=== PATIENT | female | born 1950 | race Caucasian/White ===

== ENCOUNTER 2018-09-06 21:01 | Inpatient (IN) | payer MEDICARE, MEDICAID ==
[2018-09-06] MEDS: DEXTROSE 10% 1,000 ML IV (21:50)
[2018-09-06] MEDS ORDERED: IPRATROPIUM (HFA) 12.9 GM INHALER INH (22:30)
[2018-09-06 22:53] LABS: HAAIG REFLEX REFLEX FILED
[2018-09-06 22:56] LABS: ABNORMAL IP MESSAGE 1; HEMATOCRIT 27.6 % (37.0-47.0); HEMOGLOBIN 8.6 g/dl (12.0-16.0); MEAN CORPUSCULAR HEMOGLOBIN 29.6 pg (29.0-33.0); MEAN CORPUSCULAR HGB CONC 31.2 g/dl (32.0-37.0); MEAN CORPUSCULAR VOLUME 94.8 fl (82.0-101.0); MEAN PLATELET VOLUME 8.8 fl (7.4-10.4); PLATELET COUNT 963 10^3/UL (140-415); RED BLOOD COUNT 2.91 10^6/ul (4.20-5.40); RED CELL DISTRIBUTION WIDTH 19.4 % (11.5-14.5)
[2018-09-06 22:59] LABS: ADD MAN DIFF? YES; POSITIVE DIFF @See below
[2018-09-06 23:00] LABS: PATH REVIEW? YES
[2018-09-06 23:18] LABS: ALANINE AMINOTRANSFERASE 124 IU/L (13-69); ALBUMIN 2.5 g/dl (3.3-4.9); ALKALINE PHOSPHATASE 430 IU/L (42-121); ANION GAP 10 (5-13); ASPARTATE AMINO TRANSFERASE 65 IU/L (15-46); BILIRUBIN,INDIRECT 0.2 mg/dl (0-1.1); BILIRUBIN,TOTAL 0.2 mg/dl (0.2-1.3); BLOOD UREA NITROGEN 15 mg/dl (7-20); CALCIUM 9.8 mg/dl (8.4-10.2); CARBON DIOXIDE 24 mmol/L (21-31); CHLORIDE 100 mmol/L (97-110); CREATININE 0.42 mg/dl (0.44-1.00); Estimated GFR > 60 mL/min (>60); GLUCOSE 88 mg/dl (70-220); POTASSIUM 3.9 mmol/L (3.5-5.1); SODIUM 134 mmol/L (135-144); TOTAL PROTEIN 5.6 g/dl (6.1-8.1)
[2018-09-06 23:22] LABS: LACTIC ACID 2.9 mmol/L (0.5-2.0)
[2018-09-06 23:24] LABS: LYMPHOCYTES #M 1.9 10^3/ul (0.8-2.9); LYMPHOCYTES % (M) 5 % (15-51); MONOCYTE #M 1.1 10^3/ul (0.3-0.9); MONOCYTES % (M) 3 % (0-11); PLATELET ESTIMATE INCREASED; POLYCHROMASIA 1+ (0-0); SEGMENTED NEUTROPHILS (M) % 92 % (39-77); SMUDGE%M 4 % (0-0)
[2018-09-06] MEDS ORDERED: VANCOMYCIN IV PER PHARMACY XX (23:30)
[2018-09-06 23:48] LABS: HEPATITIS B SURFACE ANTIGEN NEGATIVE (NEGATIVE)
[2018-09-07 00:01] LABS: ADD UMIC YES; UR AMORPHOUS CRYSTAL MODERATE /HPF (NONE SEEN); UR ASCORBIC ACID NEGATIVE (NEGATIVE); UR BACTERIA FEW /HPF (NONE SEEN); UR BILIRUBIN (Dip) NEGATIVE (NEGATIVE); UR BLOOD (Dip) NEGATIVE (NEGATIVE); UR CALCIUM OXALATE CRYSTAL FEW /HPF (NONE SEEN); UR CLARITY CLOUDY (CLEAR); UR COLOR YELLOW (YELLOW); UR GLUCOSE (Dip) NEGATIVE (NEGATIVE); UR KETONES (Dip) NEGATIVE (NEGATIVE); UR LEUKOCYTE ESTERASE (Dip) NEGATIVE Leu/ul (NEGATIVE); UR NITRITE (Dip) NEGATIVE (NEGATIVE); UR RBC 2 /HPF (0-5); UR SPECIFIC GRAVITY (Dip) 1.016 (1.003-1.030); UR SQUAMOUS EPITHELIAL CELL FEW /HPF (FEW); UR TOTAL PROTEIN (Dip) 1+ mg/dl (NEGATIVE); UR UROBILINOGEN (Dip) NEGATIVE (NEGATIVE); UR WBC 8 /HPF (0-5)
[2018-09-07 00:08] LABS: HEPATITIS B SURFACE ANTIBODY NEGATIVE (NEGATIVE)
[2018-09-07 00:08] LABS: HEPATITIS B CORE ANTIBODY NEGATIVE (NEGATIVE); HEPATITIS C VIRAL ANTIBODY NEGATIVE (NEGATIVE)
[2018-09-07] MEDS: SOD CHLORIDE 0.9% 1,000 ML IV (00:57)
[2018-09-07] MEDS: ENOXAPARIN 40 MG/0.4 ML SYG SC ×2 (00:59→09:20)
[2018-09-07] MEDS: PIPER-TAZO 3.375 GM IV (PMX) 100 ML IVPB ×4 (01:12→18:01)
[2018-09-07] MEDS: VANCOMYCIN 1 GM 250 ML IVPB (01:35)
[2018-09-07] MEDS: ACETAMINOPHEN 650 MG SUPP PR (01:37)
[2018-09-07] MEDS: PANTOPRAZOLE 40 MG INJ IV (05:31)
[2018-09-07] MEDS ORDERED: GLUCOSE GEL 15 GRAM TUBE PO ×2 (06:00)
[2018-09-07] MEDS ORDERED: GLUCOSE GEL 15 GRAM TUBE BUCCAL (06:00)
[2018-09-07] MEDS ORDERED: DEXTROSE 50% 50 ML SYRINGE IV ×4 (06:00)
[2018-09-07] MEDS ORDERED: GLUCAGON 1 MG INJ IM (06:00)
[2018-09-07 06:44] LABS: WHITE BLOOD COUNT 38.3 10^3/ul (4.8-10.8)
[2018-09-07 06:44] LABS: ABNORMAL IP MESSAGE 1; HEMATOCRIT 26.1 % (37.0-47.0); HEMOGLOBIN 8.1 g/dl (12.0-16.0); MEAN CORPUSCULAR HEMOGLOBIN 30.2 pg (29.0-33.0); MEAN CORPUSCULAR VOLUME 97.4 fl (82.0-101.0); MEAN PLATELET VOLUME 9.1 fl (7.4-10.4); PLATELET COUNT 1112 10^3/UL (140-415); RED BLOOD COUNT 2.68 10^6/ul (4.20-5.40); RED CELL DISTRIBUTION WIDTH 19.4 % (11.5-14.5)
[2018-09-07 07:07] LABS: LACTIC ACID 1.8 mmol/L (0.5-2.0)
[2018-09-07 07:19] LABS: HEMOGLOBIN A1C 5.2 % (0-5.9)
[2018-09-07 07:27] LABS: ALANINE AMINOTRANSFERASE 121 IU/L (13-69); ALBUMIN 2.4 g/dl (3.3-4.9); ALBUMIN/GLOBULIN RATIO 0.75; ALKALINE PHOSPHATASE 410 IU/L (42-121); ANION GAP 7 (5-13); ASPARTATE AMINO TRANSFERASE 71 IU/L (15-46); BILIRUBIN,INDIRECT 0.2 mg/dl (0-1.1); BILIRUBIN,TOTAL 0.2 mg/dl (0.2-1.3); BLOOD UREA NITROGEN 13 mg/dl (7-20); CALCIUM 10.1 mg/dl (8.4-10.2); CARBON DIOXIDE 23 mmol/L (21-31); CHLORIDE 105 mmol/L (97-110); CREATININE 0.41 mg/dl (0.44-1.00); Estimated GFR > 60 mL/min (>60); GLUCOSE 102 mg/dl (70-220); MAGNESIUM 2.2 mg/dl (1.7-2.5); POSITIVE DIFF @See below; POTASSIUM 3.7 mmol/L (3.5-5.1); SODIUM 135 mmol/L (135-144); TOTAL PROTEIN 5.6 g/dl (6.1-8.1)
[2018-09-07 07:28] LABS: ADD MAN DIFF? YES
[2018-09-07 08:45] LABS: AADO2 Arterial 166.7 mmHg (7.0-24.0); Allen Test ACCEPTAB; Arterial Base Excess 0.8 mmol/L (-3.0-3); Arterial Blood Gas Oxygen Sat 96.5 mmHG (95.0-98.0); Arterial COHb 0.3 % (0.0-3.0); Arterial Fraction of Oxyhgb 95.8 % (93.0-99.0); Arterial HCO3 23.9 mmol/L (22.0-26.0); Arterial MetHb 0.4 % (0.0-1.5); Arterial pCO2 32.4 mmhg (35-45); MODE VENT - AC; Site Right Radial
[2018-09-07] MEDS: INSULIN ASPART [NOVOLOG] 3 ML PEN SC ×4 (09:00→20:55)
[2018-09-07] MEDS: COLLAGENASE 5 GM (UD JAR) TOP (09:14)
[2018-09-07] MEDS: METOCLOPRAMIDE 10 MG INJ IV ×3 (09:15→18:01)
[2018-09-07 09:45] LABS: ANISOCYTOSIS 1+ (0-0); BAND NEUTROPHILS #M 1.1 10^3/ul (0.0-0.6); BAND NEUTROPHILS % (M) 3 % (0-4); HYPOCHROMASIA 2+ (0-0); LYMPHOCYTES #M 1.1 10^3/ul (0.8-2.9); LYMPHOCYTES % (M) 3 % (15-51); MICROCYTOSIS 1+ (0-0); MONOCYTE #M 1.5 10^3/ul (0.3-0.9); MONOCYTES % (M) 4 % (0-11); PLATELET ESTIMATE INCREASED; POLYCHROMASIA 1+ (0-0); SEG NEUT #M 34.9 10^3/ul (1.6-7.5); SEGMENTED NEUTROPHILS (M) % 90 % (39-77)
[2018-09-07] MEDS: DEXTROSE 10% 1,000 ML IV (12:17)
[2018-09-07] MEDS ORDERED: VANCOMYCIN 750 MG (PMX) 250 ML IVPB (13:00)
[2018-09-07] MEDS: VANCOMYCIN 500 MG (PMX) 100 ML IVPB (13:17)
[2018-09-08] MEDS: INSULIN ASPART [NOVOLOG] 3 ML PEN SC ×5 (01:00→17:00)
[2018-09-08] MEDS: DEXTROSE 10% 1,000 ML IV ×2 (01:15→14:22)
[2018-09-08] MEDS: PIPER-TAZO 3.375 GM IV (PMX) 100 ML IVPB ×3 (01:19→11:30)
[2018-09-08] MEDS: VANCOMYCIN 500 MG (PMX) 100 ML IVPB ×2 (01:30→14:22)
[2018-09-08] MEDS: METOCLOPRAMIDE 10 MG INJ IV ×3 (01:30→11:30)
[2018-09-08 05:19] LABS: ADD MAN DIFF? NO
[2018-09-08 05:26] LABS: ABNORMAL IP MESSAGE 1; BASOPHILS % 0.2 % (0.0-2.0); EOSINOPHILS # 0.2 10^3/ul (0.0-0.5); EOSINOPHILS % 0.8 % (0.0-7.0); HEMATOCRIT 23.5 % (37.0-47.0); HEMOGLOBIN 7.4 g/dl (12.0-16.0); LYMPHOCYTES # 1.2 10^3/ul (0.8-2.9); LYMPHOCYTES % 6.7 % (15.0-51.0); MEAN CORPUSCULAR HEMOGLOBIN 30.2 pg (29.0-33.0); MEAN CORPUSCULAR HGB CONC 31.5 g/dl (32.0-37.0); MEAN CORPUSCULAR VOLUME 95.9 fl (82.0-101.0); MEAN PLATELET VOLUME 8.8 fl (7.4-10.4); MONOCYTE # 1.6 10^3/ul (0.3-0.9); MONOCYTES % 8.6 % (0.0-11.0); NEUTROPHIL # 14.9 10^3/ul (1.6-7.5); NEUTROPHILS % 82.1 % (39.0-77.0); PLATELET COUNT 774 10^3/UL (140-415); RED BLOOD COUNT 2.45 10^6/ul (4.20-5.40); RED CELL DISTRIBUTION WIDTH 19.3 % (11.5-14.5)
[2018-09-08 05:26] LABS: WHITE BLOOD COUNT 18.2 10^3/ul (4.8-10.8)
[2018-09-08] MEDS: PANTOPRAZOLE 40 MG INJ IV (05:26)
[2018-09-08 05:37] LABS: POSITIVE DIFF @See below
[2018-09-08 05:59] LABS: ALANINE AMINOTRANSFERASE 92 IU/L (13-69); ALBUMIN 2.2 g/dl (3.3-4.9); ALKALINE PHOSPHATASE 298 IU/L (42-121); ANION GAP 6 (5-13); ASPARTATE AMINO TRANSFERASE 37 IU/L (15-46); BILIRUBIN,INDIRECT 0.2 mg/dl (0-1.1); BILIRUBIN,TOTAL 0.2 mg/dl (0.2-1.3); BLOOD UREA NITROGEN 8 mg/dl (7-20); CALCIUM 9.7 mg/dl (8.4-10.2); CARBON DIOXIDE 23 mmol/L (21-31); CHLORIDE 106 mmol/L (97-110); CREATININE 0.39 mg/dl (0.44-1.00); Estimated GFR > 60 mL/min (>60); GLUCOSE 139 mg/dl (70-220); SODIUM 135 mmol/L (135-144); TOTAL PROTEIN 5.3 g/dl (6.1-8.1)
[2018-09-08 06:02] LABS: POTASSIUM 2.9 mmol/L (3.5-5.1)
[2018-09-08] MEDS: POTASSIUM CHLORIDE 100 ML IVPB ×3 (07:05→11:28)
[2018-09-08 08:05] LABS: MAGNESIUM 1.9 mg/dl (1.7-2.5)
[2018-09-08] MEDS: COLLAGENASE 5 GM (UD JAR) TOP (08:07)
[2018-09-08] MEDS: ENOXAPARIN 40 MG/0.4 ML SYG SC (08:57)
[2018-09-08 12:47] LABS: VANCOMYCIN,TROUGH 12.4 ug/ml (10.0-20.0)
[2018-09-08 12:50] LABS: IMMEDIATE SPIN CROSSMATCH 1 1
[2018-09-09] MEDS ORDERED: LANSOPRAZOLE 30 MG CAP GTB (06:00)
== END 2018-09-08 18:00 | DRG 871 ==
LOC: ICU 21:01
PROC: 5A1945Z Respiratory Ventilation, 24-96 Consecutive Hours (ICD-10-PCS; principal; 2018-09-06)
PROC: 30233N1 Transfusion of Nonautologous Red Blood Cells into Peripheral Vein, Percutaneous Approach (ICD-10-PCS; 2018-09-08)
DX: A41.9 Sepsis, unspecified organism (principal); L89.154 Pressure ulcer of sacral region, stage 4; J69.0 Pneumonitis due to inhalation of food and vomit; J96.22 Acute and chronic respiratory failure with hypercapnia; J96.21 Acute and chronic respiratory failure with hypoxia; G93.49 Other encephalopathy; Z99.11 Dependence on respirator [ventilator] status; K56.7 Ileus, unspecified; Z93.0 Tracheostomy status; Z93.3 Colostomy status; F03.90 Unspecified dementia, unspecified severity, without behavioral disturbance, psychotic disturbance, mood disturbance, and anxiety; D64.9 Anemia, unspecified; Z93.1 Gastrostomy status; J06.9 Acute upper respiratory infection, unspecified; R74.0 Nonspecific elevation of levels of transaminase and lactic acid dehydrogenase [LDH]
CPT/HCPCS: 36430; 36600; 71045; 74018; 76705; 80053; 80202; 81001; 82803; 82962; 83036; 83605; 83735; 85025; 86704; 86706; 86708; 86709; 86803; 86850; 86900; 86901; 86920; 87040-91; 87070; 87081; 87086; 87275; 87276; 87279; 87280; 87340; 94002; 94003